=== PATIENT | male | born 1990 | race Caucasian/White ===

== ENCOUNTER → 2021-08-14 | Outpatient (CLI) | payer OTHER ==
[~2021-08-14] MED LIST: DOLOBID 500 MG500 MG PO; FLEXERIL 10 MG10 MG PO; IBUPROFEN800 MG PO
== END ==
LOC: EXRD 10:43
DX: M54.2 Cervicalgia (principal); G89.29 Other chronic pain; M54.9 Dorsalgia, unspecified
CPT/HCPCS: 72050; 72070

== ENCOUNTER → 2021-12-05 | Outpatient (CLI) | payer OTHER | LOC: CT 11:00 → EMI 15:07 | DX: M48.061 Spinal stenosis, lumbar region without neurogenic claudication (principal); M51.27 Other intervertebral disc displacement, lumbosacral region | CPT/HCPCS: 72148 ==

== ENCOUNTER → 2022-01-29 | Outpatient (CLI) | payer OTHER ==
[~2022-01-29] VITALS: Ht 185.4 cm; Wt 72.1 kg
[~2022-01-29] MED LIST changes: +ALFUZOSIN HCL E10 MG PO; +CYCLOBENZAPRINE10 MG PO; +DOCUSATE SODIU100 MG PO; +ESCITALOPRAM OX20 MG PO; +FLONASE ALLER15.8 ML; +NURTEC ODT75 MG PO; +RIZATRIPTAN10 M1 PO
[2022-01-29 10:28] LABS: HEMOGLOBIN 13.3 gm/dl (14.0-17.5); RED BLOOD COUNT 4.3 M/UL (4.20-5.50); WHITE BLOOD COUNT 5.8 K/UL (4.5-11.0)
[2022-01-29 10:57] LABS: BUN/CREATININE RATIO 18 (0-10)
== END ==
LOC: OPSV2 09:51 → EDSTATUS 10:00 → OPSV2 10:00
PROVIDERS: Orthopaedic Surgery
DX: Z01.818 Encounter for other preprocedural examination (principal); M54.16 Radiculopathy, lumbar region
CPT/HCPCS: 71046; 80048; 80307; 81001; 85025; 85610; 85730; 87081; 93005

== ENCOUNTER → 2022-01-29 | Outpatient (CLI) | payer OTHER | LOC: KOH-I 08:00 | DX: M51.26 Other intervertebral disc displacement, lumbar region (principal); M51.36 Other intervertebral disc degeneration, lumbar region; M48.061 Spinal stenosis, lumbar region without neurogenic claudication | CPT/HCPCS: 72131 ==

== ENCOUNTER → 2022-02-02 | Outpatient (CLI) | payer OTHER ==
[2022-02-02 14:22] LABS: BUN/CREATININE RATIO 8 (0-10)
== END ==
LOC: LAB 13:47
PROVIDERS: Orthopaedic Surgery
DX: Z01.812 Encounter for preprocedural laboratory examination (principal)
CPT/HCPCS: 36415; 80048; 86850; 86900; 86901

== ENCOUNTER → 2022-02-03 | Day surgery (SDC) | payer OTHER ==
[~2022-02-03] VITALS: Ht 185.4 cm; Wt 72.1 kg
== END | disposition home or self-care (01) ==
LOC: OR 05:26
DX: M51.16 Intervertebral disc disorders with radiculopathy, lumbar region (principal); F41.9 Anxiety disorder, unspecified; F32.A Depression, unspecified; F12.90 Cannabis use, unspecified, uncomplicated; N18.30 Chronic kidney disease, stage 3 unspecified; Z88.8 Allergy status to other drugs, medicaments and biological substances; Z79.82 Long term (current) use of aspirin; Z79.899 Other long term (current) drug therapy
CPT/HCPCS: 72110; 76000; C1781; J0690; J1040; J1100; J1170; J1885; J2001; J2250; J2405; J2704; J3010; J3370; J7040; J7050

== ENCOUNTER → 2022-02-11 | Outpatient (CLI) | payer OTHER | LOC: US 08:43 | DX: R10.9 Unspecified abdominal pain (principal) | CPT/HCPCS: 76700 ==